=== PATIENT | male | born 1935 | race Caucasian/White ===

== ENCOUNTER → 2017-03-17 | Outpatient (CLI) | payer OTHER, MEDICARE | LOC: BMCIMAGING 12:19 | PROVIDERS: ATTEND Internal Medicine | DX: M50.321 Other cervical disc degeneration at C4-C5 level (principal); M47.892 Other spondylosis, cervical region; M46.92 Unspecified inflammatory spondylopathy, cervical region ==

== ENCOUNTER → 2018-03-30 | Outpatient (CLI) | payer OTHER, MEDICARE | PROVIDERS: ATTEND Internal Medicine | DX: R13.10 Dysphagia, unspecified (principal); K22.4 Dyskinesia of esophagus | CPT/HCPCS: 74230; 92611; G8996; G8997; G8998 ==

== ENCOUNTER → 2018-08-26 | Outpatient (CLI) | payer OTHER, MEDICARE | LOC: FIMAGING 08:20 | PROVIDERS: ATTEND Physician Assistant | DX: R13.12 Dysphagia, oropharyngeal phase (principal); K21.9 Gastro-esophageal reflux disease without esophagitis ==